=== PATIENT | male | born 1950 | race Two or more races ===

== ENCOUNTER 2022-02-12 07:16 | Outpatient (CLI) | payer OTHER | END 2022-02-12 07:18 | disposition home or self-care (01) | LOC: NUCLEAR 07:16 | PROVIDERS: ATTEND Internal Medicine Cardiovascular Disease | DX: I50.9 Heart failure, unspecified (principal); I20.9 Angina pectoris, unspecified; R06.02 Shortness of breath | CPT/HCPCS: 78452; 93017; A9500; J0153 ==